=== PATIENT | female | born 1960 | race Caucasian/White ===

== ENCOUNTER → 2019-11-13 | Outpatient (CLI) | payer OTHER ==
--- NOTE | 2019-11-13 12:32 | CARDNUC ---
[place] [address] CARDIAC NUCLEAR IMAGING REPORT Name: GREGORY AGUILERA Room: [facility]#: [id number] Admission: 11/13/19 Attend Phys: Darlene Sewell, Discharge: Date of : 58 Date of Service: 11/13/19 1232 Report #: [id number] THIS REPORT FOR: cc: Jeanie Drake MD, Veronica A. MD Liston, Michael J. MD [facility] ~ APPROVED REPORT Study performed: 11/13/2019 09:55:42 Exam: Nuclear Stress Test Indication: Abnormal EKG, Chest pain Patient Location: Out-Patient Stress Nurse: CHRIS Ignacio Tech:DANIEL Lemon Ht: 5 ft 5 in Wt: 134 lbs BSA: 1.67 m2 BMI: 22.29 Medical History Medications: no cardiac meds Allergies: montelukast Cardiac Risk Factors: Age, , Past Smoker Exercise History: Physically active Stress Test Details Stress Test: Exercise stress testing was performed using a Pepe protocol. HR Resting HR: 78 bpm Max Heart Rate (APMHR): 160 bpm Max HR Achieved: 156 bpm Target HR (85% APMHR): 136 bpm % of APMHR: 97 Recovery HR: 94 bpm BP Resting BP: 124/85 mmHg Max BP: 165/78 mmHg ECG Resting ECG: Sinus Rhythm Stress ECG: Sinus Tachycardia ST Change: None Arrhythmia: None Recovery ECG: [place] [address] CARDIAC NUCLEAR IMAGING REPORT Name: GREGORY AGUILERA Room: [facility]#: [id number] Admission: 11/13/19 Attend Phys: Darlene Sewell, Discharge: Date of : 58 Date of Service: 11/13/19 1232 Report #: [id number] Change: None Recovery Arrhythmia: None Clinical Reason for Termination: Maximal effort Exercise duration: 10 min 12 sec Exercise capacity: 98 METs Overall Exercise Capacity for Age: Superior The patient exhibited good exercise tolerance. The patient had no significant cardiac symptoms with standard Pepe protocol exercise. Stress ECG Conclusion The baseline twelve-lead EKG shows sinus rhythm without significant ST segment or T wave abnormality. EKGs obtained during and post exercise shows sinus rhythm and sinus tachycardia with no significant ST segment or T wave changes when compared to baseline. There were no stress-induced arrhythmias. NM EXAM: Myocardial Perfusion REST/STRESS Imaging Protocol: Rest Tc-99m/Stress Tc-99m 1 day Resting Data Rest SPECT myocardial perfusion imaging was performed in supine position 30 minutes following the intravenous injection of 11.4 mCi of Tc-99m Sestamibi. Time of rest injection: 819 Date: 11/13/2019 The images were gated to evaluate regional wall motion and calculate left ventricular ejection fraction. Administration Route: IV Administration Site: Left AC Exercise Stress At peak stress, the patient was injected intravenously with 31.8mCi of Tc-99m Sestamibi. Time of stress injection: 949 Date: 11/13/2019 Administration Route: IV Administration Site: Left AC Gated Stress SPECT was performed 30 minutes after stress injection. The images were gated to evaluate regional wall motion and calculate left ventricular ejection fraction. Prone imaging was performed. Study Quality Study: [place] [address] CARDIAC NUCLEAR IMAGING REPORT Name: GREGORY AGUILERA Room: [facility]#: [id number] Admission: 11/13/19 Attend Phys: Darlene Sewell, Discharge: Date of : 58 Date of Service: 11/13/19 1232 Report #: [id number] Artifact: No artifact Study Data At rest, the left ventricular ejection fraction was 71%.. Post stress, the left ventricular ejection was 75%.. TID = 1.04. Perfusion Perfusion images obtained at rest and post exercise stress showed uniform uptake of the radioisotope throughout the myocardium without defect. Wall Motion Normal left ventricular wall motion. Nuclear Conclusion ECG Findings: negative for ischemia Clinical Findings: negative for ischemia Nuclear Findings: negative for ischemia Exercise Capacity: normal Left Ventricular Function: normal Risk Study: low Perfusion images show no defect to suggest infarct or ischemia. Left ventricular systolic function appears normal on gated studies. This is a low risk study. <Conclusion> The baseline twelve-lead EKG shows sinus rhythm without significant ST segment or T wave abnormality. EKGs obtained during and post exercise shows sinus rhythm and sinus tachycardia with no significant ST segment or T wave changes when compared to baseline. There were no stress-induced arrhythmias. <ELECTRONICALLY SIGNED> By: Darnell Mullins MD, [facility] 11/13/19 1232 1232 1232 Darnell Mullins MD, FACC /INF
== END ==
LOC: M.NUC 11-06 11:20
PROVIDERS: ATTEND Internal Medicine
DX: R00.0 Tachycardia, unspecified (principal); R07.89 Other chest pain